=== PATIENT | male | born 1935 | race Caucasian/White ===

== ENCOUNTER → 2017-07-01 | Outpatient (CLI) | payer OTHER ==
[~2017-07-01] MED LIST: ACET500T13 PO; ASPI81CH6 CHEW; ASPI81TA23 PO; COMMODE 3-IN-11 MIS; CPMMACHINE; DOCU100C15 PO; HYDR-3288 PO; LISI-515 PO; METO25TA3 PO; SIMV40TA PO; VITA20003 PO; WALKER WHEELS/F1 MIS; traMADol-ACETAMIN 37.5-325 MG PO
== END ==
LOC: CPRE 08:44
PROVIDERS: ATTEND Orthopaedic Surgery Sports Medicine
DX: M17.12 Unilateral primary osteoarthritis, left knee (principal)

== ENCOUNTER 2017-07-15 05:26 | Inpatient (IN) | payer OTHER, MEDICARE ==
[~2017-07-15] VITALS: Ht 174 cm; Wt 88.0 kg
[~2017-07-15 05:26] MED LIST changes: -ACET500T13 PO; -ASPI81CH6 CHEW; -COMMODE 3-IN-11 MIS; -CPMMACHINE; -DOCU100C15 PO; -HYDR-3288 PO; -WALKER WHEELS/F1 MIS; -traMADol-ACETAMIN 37.5-325 MG PO
[2017-07-15] MEDS ORDERED: TRANEXAMIC ACID INJ 1,320 MG in SODIUM CHLORIDE 0.9% INJ 100 ML IV SCH (06:15)
[2017-07-15] MEDS ORDERED: POVIDONE IODINE 5% (ANTISEPSIS KIT) 4 APPLICATIONS EACH NARE PRN (06:15)
[2017-07-15] MEDS ORDERED: CHLORHEXIDINE GLUCONATE 4% SOLN 120 ML BTL TOPICAL SCH (06:15)
[2017-07-15] MEDS ORDERED: ROPIVACAINE PERI-ARTICULAR INJECTION. P-ARTICULR SCH ×5 (06:15)
[2017-07-15] MEDS ORDERED: LACTATED RINGER'S 1000 ML IV PRN (06:15)
[2017-07-15] MEDS ORDERED: SODIUM CHLORID 0.9% 500 ML IV PRN (06:15)
[2017-07-15] MEDS ORDERED: VANCOMYCIN 1000 MG/NS 250 ML (for <70 kg) IV SCH (06:15)
[2017-07-15] MEDS ORDERED: METOPROLOL TARTRATE 25 MG TAB PO PRN (06:15)
[2017-07-15] MEDS ORDERED: ceFAZolin 2 GM PREMIX 50 ML IV SCH (06:15)
[2017-07-15] MEDS ORDERED: POVIDONE IODINE 7.5% SCRUB 118 ML BOTTLE TOPICAL SCH (06:15)
[2017-07-15] MEDS ORDERED: CHLORHEXIDINE GLUCONATE 2 % 1 PACK (2 CLOTHS) TOPICAL PRN (06:15)
[2017-07-15] MEDS ORDERED: DEXAMETHASONE SOD PHOS 20 MG/5 ML VIAL IV PUSH PRN (06:15)
[2017-07-15] MEDS ORDERED: TRANEXAMIC PERI-ARTICULAR 3,000 MG/NS 100 ML P-ARTICULR SCH ×2 (06:15)
[2017-07-15 06:41] VITALS: PULSE 54
[2017-07-15] MEDS ORDERED: ASPI81CH6 CHEW (06:59)
[2017-07-15] MEDS ORDERED: HYDR-3288 PO (06:59)
[2017-07-15] MEDS ORDERED: diphenhydrAMINE HCL 50 MG/ML VIAL IV PUSH PRN (07:00)
[2017-07-15] MEDS ORDERED: MORPHINE SULFATE 4 MG/ML INJ IV PUSH PRN (07:00)
[2017-07-15] MEDS ORDERED: ACETAMINOPHEN/HYDROcodone 325 MG/7.5 MG TAB PO PRN ×2 (07:00)
[2017-07-15] MEDS ORDERED: ZOLPIDEM TARTRATE 5 MG TAB PO PRN (07:00)
[2017-07-15] MEDS ORDERED: ONDANSETRON HCL 4 MG/2 ML VIAL IVP PRN (07:00)
[2017-07-15] MEDS ORDERED: Post-op Orders (for Pharmacy) XX ONE (07:00)
[2017-07-15] MEDS ORDERED: MIDAZOLAM HCL 2 MG/2 ML VIAL ONE ×2 (07:14→10:38)
[2017-07-15] MEDS ORDERED: GENTAMICIN SULFATE 80 MG/2 ML VIAL ONE (07:24)
[2017-07-15] MEDS ORDERED: MIDAZOLAM HCL 2 MG/2 ML VIAL IV ONE (07:30)
[2017-07-15] MEDS ORDERED: PROPOFOL 500 MG/50 ML INJ 50 ML ONE (07:42)
[2017-07-15] MEDS ORDERED: ACETAMINOPHEN 1000 MG/100 ML 100 ML IV ONE (07:42)
[2017-07-15] MEDS ORDERED: BUPIVACAINE HCL PF 0.5% 30 ML VIAL ONE (07:45)
[2017-07-15] MEDS: PRAVASTATIN SOD 80 MG TAB PO SCH (09:00)
[2017-07-15] MEDS: LISINOPRIL 20 MG TAB PO SCH (09:00)
[2017-07-15] MEDS: METOPROLOL TARTRATE 25 MG TAB PO SCH (09:00)
[2017-07-15] MEDS ORDERED: DO NOT ADM ANY ANTICOAGULANT DRUGS PRN (10:27)
--- NOTE | 2017-07-15 10:41 | MP ---
cc: Manan Cruz MD DATE OF OPERATION: DATE OF PROCEDURE: 07/15/2017 PREOPERATIVE DIAGNOSIS: Left knee osteoarthritis. POSTOPERATIVE DIAGNOSIS: Left knee osteoarthritis. PROCEDURE PERFORMED: Left total knee arthroplasty. SURGEON: Manan Cruz MD GLASS DESIGNER: DANIEL Higuera ANESTHESIA: Spinal as well as 50 mL TOURNIQUET TIME: 30 minutes at 250 mmHg. COMPLICATIONS: None. IMPLANTS USED: DePuy Attune size 7 posterior stabilized femoral component, size 8 rotating platform tibial baseplate, size 10 mm polyethylene tibial insert, size 38 patella. INDICATIONS: This patient is an 82-year-old male with history of severe end-stage osteoarthritis involving the left knee. He has severe disabling pain with standing, walking, ambulation and weightbearing activities and severe pain with rest. It does interfere with activities of daily living. He has failed greater than 3 months of nonoperative conservative treatment to include medication therapy, injections, ambulatory assisted aids, home exercise program, activity modification. The patient is not overweight. X-rays of the left knee reveal severe osteoarthritis with [id number] joint space narrowing, subchondral sclerosis, subchondral cyst, osteophyte formation with varus deformity and subluxation. The patient was counseled as to the risks, benefits and alternatives to a total knee arthroplasty. The risks were discussed, which include, but are not limited to anesthesia, bleeding, infection, damage to nerves, blood vessels, pain, stiffness, failure of components, blood clots, pulmonary embolism and even . The patient's pain is severe. He favored the benefits over the risks and he did wish to proceed with surgery. PROCEDURE IN DETAIL: Written consent was obtained. The patient was identified by name, taken to the operating room and placed supine on the operating table. Spinal anesthesia was administered, as well as 2 grams of IV Ancef and 1 gram IV vancomycin. A well-padded tourniquet was placed on the left thigh. The left lower extremity was prepped and draped using isopropyl alcohol, Hibiclens solution and ChloraPrep solution. After a timeout was performed, an Esmarch bandage was used to exsanguinate the left lower extremity and tourniquet inflated to 250 mmHg. A longitudinal incision was made over the anterior aspect of the left knee. A medial parapatellar arthrotomy incision was performed. The patella was everted. The patellar resection guide was used to resect 9 mm of the patella. The size 38 mm guide was placed. Three drill holes were placed and a 30 mm trial fit well. Attention was turned to the femur. Intramedullary guide was placed and the distal femoral guide was set to remove 10 mm of distal femur 5 degrees off the anatomic valgus axis alignment. An oscillating saw was used to perform distal femoral cut. Attention was turned to the tibia where an extramedullary tibial guide was set to remove 6 mm of the lowest portion of the medial tibial plateau. The tibia guide was pinned in place and tibial cut was performed. A 5 mm spacer block showed full extension. Attention was turned back to the femur. AP sizing block measured a size 7. The anterior reference 3-degree external rotation guide was used to pin a size [address] The anterior, posterior and chamfer cuts were performed. A size 7 PCL box guide was pinned in place and the PCL was boxed out with an oscillating saw. The medial and lateral meniscus remnants were removed, as well as bone and soft tissue and debris from the posterior portion of the knee. A size 8 tibial baseplate was pinned in place and the tibia was drilled and punched. Trial components were evaluated and the final components cemented in place. With the current components the leg could achieve full extension 0 degrees, flexion to 140. No evidence of tibial liftoff. Varus valgus balance appeared appropriate and symmetric. The patella was noted to track centrally. With the tourniquet deflated, Bovie cautery was used for hemostasis. The surgical wound was thoroughly irrigated with sterile saline pulse lavage antibiotic impregnated solution. The arthrotomy incision was closed with #1 Vicryl suture, subcutaneous layer with 2-0 Vicryl suture, skin was closed with Dermabond. Sterile dressing applied. The patient tolerated the procedure well with no intraoperative complications noted. Ko Greene, physician ortho assistant certified was present for the entire procedure to include the patient positioning, the procedure itself. The medical necessity of physician ortho assistant was indicated in this case due to the complexity of the procedure. He assisted with appropriate manipulation of the leg and also retraction of muscle, tendon, bone, neurovascular structures. He assisted with preparation of bone and also implantation of the prosthetic replacement. MD JUNIE Guerin/TL , 10:12 AM , 10:40 AM
--- NOTE | 2017-07-15 11:18 | RADRPT ---
EXAM DATE/TIME: 07/15/2017 10:49 [facility] COMPARISON: No previous studies available for comparison. INDICATIONS : Post op left knee surgery MEDICAL HISTORY : None. SURGICAL HISTORY : None. ENCOUNTER: Initial ACUITY: 1 day PAIN SCORE: 0/10 LOCATION: Left knee FINDINGS: Postoperative total knee arthroplasty with intact hardware and normal alignment of the osseous struct ures. Superficial and deep soft tissue gas about the knee. No metallic radiopaque foreign bodies. CONCLUSION: Expected postsurgical changes status post total knee arthroplasty. Jalen Juan MD on July 15, 2017 at 11:16 Board Certified Radiologist. This report was verified electronically.
[2017-07-15] MEDS: SODIUM CHLOR 0.9% 1000 ML INJ 1,000 ML IV SCH ×2 (11:30→16:37)
[2017-07-15] MEDS ORDERED: ROCURONIUM INJ 50 MG/5 ML SYRINGE IV PUSH ONE (12:00)
[2017-07-15] MEDS ORDERED: LIDOCAINE HCL 1% PF 5 ML SYRINGE OTHER ONE (12:00)
[2017-07-15] MEDS ORDERED: PROPOFOL 200 MG/20 ML AMP IV ONE (12:00)
[2017-07-15] MEDS ORDERED: ePHEDrine/NS 25 MG/5 ML SYRINGE IV ONE (12:00)
[2017-07-15] MEDS ORDERED: ONDANSETRON HCL 4 MG/2 ML VIAL IV ONE (12:00)
--- NOTE | 2017-07-15 14:40 | PD.CONS ---
[facility] By [facility] Care Physician Josef Fischer M.D. Diagnoses: History of Present Illness Mr. Lopez is an 82-year-old male. He is admitted secondary to an elective left knee surgery related to osteoarthritis. Previous surgeries include skin cancer removal and a nephrectomy. No previous orthopedic surgeries, per patient. When seen his pain is controlled. He reports no nausea or vomiting. In addition to osteoarthritis, baseline medical conditions are hypertension, hyperlipidemia, and vitamin D deficiency. Review of Systems Constitutional: DENIES: Fatigue, Fever, Chills Eyes: DENIES: Diplopia, Eye inflammation, Eye pain Ears, nose, mouth, throat: DENIES: Hearing loss, Vertigo, Nasal discharge Respiratory: DENIES: Cough, Wheezing, Shortness of breath Cardiovascular: DENIES: Chest pain, Palpitations, Syncope Gastrointestinal: DENIES: Abdominal pain, Black stools, Bloody stools Musculoskeletal: COMPLAINS OF: Joint pain, Muscle aches, Stiffness, Joint Swelling Integumentary: DENIES: Abnormal pigmentation, Nail changes, Pruritus, Rash Hematologic/lymphatic: DENIES: Bruising, Lymphadenopathy Immunologic/allergic: DENIES: Eczema, Urticaria Neurologic: DENIES: Abnormal gait, Headache, Paresthesias Psychiatric: DENIES: Anxiety, Confusion, Hallucinations Past Family Social History Allergies: Coded Allergies: No Known Allergies (Unverified , 07/01/17) Past Medical History Hyperlipidemia Hypertension Vitamin D deficiency Osteoarthritis Past Surgical History Skin cancer removals Nephrectomy Reported Medications Reported Meds & Active Scripts Active Aspirin Low Dose (Aspirin) 81 Mg Chew 81 Mg CHEW BID 30 Days [place] (Hydrocodone-Acetaminophen) 7.5-325 mg Tab 1-2 Tab PO Q6H PRN Reported Lisinopril 20 Mg Tab 20 Mg PO DAILY Metoprolol Tartrate 25 Mg Tab 25 Mg PO DAILY Vitamin D (Cholecalciferol) 2,000 Unit Tab 1 Cap PO DAILY Aspirin EC (Aspirin) 81 Mg Tabdr 81 Mg PO DAILY Simvastatin 40 Mg Tab 40 Mg PO DAILY Active Ordered Medications Administered Medications Medications (Trade) Dose Ordered Sig/Bret Route PRN Reason Start Time Stop Time Status Last Admin Dose Admin Lactated Ringer's 1,000 ml @ 30 mls/hr Q24H PRN IV SEE LABEL COMMENTS 07/15/17 06:15 07/18/17 06:14 07/15/17 06:40 Povidone Iodine (Betadine 5% Antisepsis Kit) 1 applic WAGON PERSON PRN EACH NARE SEE LABEL COMMENTS 07/15/17 06:15 07/18/17 06:14 07/15/17 06:43 Chlorhexidine Gluconate (Chlorhexidine 2% Cloth) 3 pack WAGON PERSON PRN TOPICAL SEE LABEL COMMENTS 07/15/17 06:15 07/18/17 06:14 07/15/17 05:40 Chlorhexidine Gluconate (Hibiclens 4% Top Soln) 1 applic ONCE TOPICAL 07/15/17 06:15 07/18/17 06:14 07/15/17 06:43 Cefazolin Sodium/ Dextrose 50 ml @ 100 mls/hr WAGON PERSON IV 07/15/17 06:15 07/18/17 06:14 07/15/17 08:16 Vancomycin/Sodium Chloride 200 ml @ 200 mls/hr WAGON PERSON IV 07/15/17 06:15 07/18/17 06:14 07/15/17 07:31 Tranexamic Acid 1320 mg/Sodium Chloride 113.2 ml @ 200 mls/hr ONCE IV 07/15/17 06:15 07/15/17 15:00 07/15/17 08:43 Ropivacaine 24.63 ml/Ketorolac Tromethamine 30 mg/Epinephrine HCl 0.5 mg/ Clonidine 80 mcg/ Sodium Chloride 100 ml @ 200 mls/hr ONCE P-ARTICULR 07/15/17 06:15 07/15/17 16:00 07/15/17 09:30 Tranexamic Acid 3000 mg/Sodium Chloride 130 ml @ 260 mls/hr ONCE P-ARTICULR 07/15/17 06:15 07/15/17 16:00 07/15/17 09:30 Sodium Chloride 1,000 ml @ 100 mls/hr Q10H IV 07/15/17 06:56 07/15/17 11:30 Cefazolin Sodium 1000 mg/Sodium Chloride 100 ml @ 200 mls/hr Q6H IV 07/15/17 14:00 07/16/17 02:29 07/15/17 13:47 Acetaminophen/ Hydrocodone Bitart ([place] 7.5-325 Mg) 1 tab Q4H PRN PO PAIN LESS THAN 5 ON SCALE 07/15/17 07:00 07/15/17 14:12 Family History Father of cancer, not specified Mother of old age No known medical conditions other than as stated Social History No history of smoking No history of alcohol abuse No history of illicit drug abuse Physical Exam Vital Signs Vital Signs Date Time Temp Pulse Resp B/P (MAP) Pulse Ox O2 Delivery O2 Flow Rate FiO2 07/15/17 13:30 97.0 61 14 115/63 (80) 100 Nasal Cannula 2 07/15/17 12:30 55 14 118/56 (76) 100 Nasal Cannula 2 07/15/17 12:15 54 15 112/55 (74) 100 Nasal Cannula 2 07/15/17 12:00 55 16 107/55 (72) 100 Nasal Cannula 2 07/15/17 11:45 56 15 113/56 (75) 100 Nasal Cannula 2 07/15/17 11:30 55 16 110/54 (72) 99 Nasal Cannula 2 07/15/17 11:15 58 18 105/52 (69) 97 Nasal Cannula 2 07/15/17 11:00 74 16 102/54 (70) 96 Nasal Cannula 2 07/15/17 10:45 59 14 100/50 (67) 95 Nasal Cannula 2 07/15/17 10:30 96.0 72 16 92/55 (67) 100 Nasal Cannula 2 07/15/17 06:41 95 Nasal Cannula 2 07/15/17 06:41 54 07/15/17 06:33 97.8 55 20 140/67 (91) 98 Physical Exam GENERAL: NAD, A&Ox3 HEAD: Normocephalic. NECK: Supple, trachea midline. No lymphadenopathy. EYES: No scleral icterus. No injection or drainage. CARDIOVASCULAR: Regular rate and rhythm without murmurs, gallops, or rubs. RESPIRATORY: Breath sounds equal bilaterally. No accessory muscle use. GASTROINTESTINAL: Abdomen soft, non-tender, nondistended. MUSCULOSKELETAL: No cyanosis, or edema. Left knee is bandaged, left knee is in a mobilizer SKIN: Warm and dry. NEURO: No focal neurological deficitis. Imaging Last Impressions Knee X-Ray 07/15/17 0656 Signed Impressions: Service Date/Time: Saturday, July 15, 2017 10:49 - CONCLUSION: Expected postsurgical changes status post total knee arthroplasty. Jalen Juan MD Assessment and Plan Problem List: (1) Primary localized osteoarthrosis, lower leg ICD Code: M17.10 - Unilateral primary osteoarthritis, unspecified knee (2) Primary localized osteoarthrosis, pelvic region and thigh ICD Code: M16.10 - Unilateral primary osteoarthritis, unspecified hip Assessment and Plan 82-year-old male admitted secondary to elective left knee surgery secondary to osteoarthritis Status post left knee arthroplasty Osteoarthritis Monitor H&H Orthopedic surgeons following Bedrest for now Physical therapy plan Continue pain control as needed Hypertension Continue baseline treatment Follow blood pressures Adjust treatments as needed Hyperlipidemia Continue present treatment Follow as an outpatient Vitamin D deficiency Continue supplement DVT prophylaxis Per surgical recommendations Bc De La Rosa MD Jul 15, 2017 14:40
[2017-07-15 15:00] VITALS: BP 127/63; PULSE 73; RESP 17; TEMP 97.2; O2SAT 94
[2017-07-15 20:00] VITALS: BP 137/63; PULSE 90; RESP 18; TEMP 97.4; O2SAT 95
[2017-07-16 00:01] VITALS: BP 146/65; PULSE 82; RESP 18; TEMP 97.6; O2SAT 95
[2017-07-16] MEDS: SODIUM CHLOR 0.9% 1000 ML INJ 1,000 ML IV SCH ×3 (02:40→22:56)
[2017-07-16 04:00] VITALS: BP 118/60; PULSE 68; RESP 17; TEMP 97.7; O2SAT 96
[2017-07-16 06:22] LABS: HEMATOCRIT 35.5 % (39.0-51.0); HEMOGLOBIN 12.1 GM/DL (13.0-17.0); MEAN CORPUSCULAR HGB CONC 34.1 % (32.0-36.0); MEAN PLATELET VOLUME 9.9 FL (7.0-11.0); PLATELET COUNT 104 TH/MM3 (150-450); RED BLOOD COUNT 4.03 MIL/MM3 (4.50-5.90); RED CELL DISTRIBUTION WIDTH 14.1 % (11.6-17.2); WHITE BLOOD COUNT 14.9 TH/MM3 (4.0-11.0)
[2017-07-16 06:39] LABS: BICARBONATE 24.8 MEQ/L (21.0-32.0); CALCIUM 8.3 MG/DL (8.5-10.1); CREATININE 1.58 MG/DL (0.60-1.30)
[2017-07-16 07:59] VITALS: BP 168/83; PULSE 80; RESP 18; TEMP 97.1; O2SAT 97
--- NOTE | 2017-07-16 08:36 | PD.ORT.PN ---
Subjective Post Op Day #: 1 Subjective Remarks patient very confused. Objective Vitals Vital Signs Date Time Temp Pulse Resp B/P (MAP) Pulse Ox O2 Delivery O2 Flow Rate FiO2 07/16/17 07:59 97.1 80 18 168/83 (111) 97 07/16/17 04:00 97.7 68 17 118/60 (79) 96 07/16/17 00:01 97.6 82 18 146/65 (92) 95 07/15/17 20:00 97.4 90 18 137/63 (87) 95 07/15/17 15:12 18 07/15/17 15:00 97.2 73 17 127/63 (84) 94 07/15/17 13:30 97.0 61 14 115/63 (80) 100 Nasal Cannula 2 07/15/17 12:30 55 14 118/56 (76) 100 Nasal Cannula 2 07/15/17 12:15 54 15 112/55 (74) 100 Nasal Cannula 2 07/15/17 12:00 55 16 107/55 (72) 100 Nasal Cannula 2 07/15/17 11:45 56 15 113/56 (75) 100 Nasal Cannula 2 07/15/17 11:30 55 16 110/54 (72) 99 Nasal Cannula 2 07/15/17 11:15 58 18 105/52 (69) 97 Nasal Cannula 2 07/15/17 11:00 74 16 102/54 (70) 96 Nasal Cannula 2 07/15/17 10:45 59 14 100/50 (67) 95 Nasal Cannula 2 07/15/17 10:30 96.0 72 16 92/55 (67) 100 Nasal Cannula 2 I/O 07/15/17 07/15/17 07/15/17 07/16/17 07/16/17 07/16/17 07:00 15:00 23:00 07:00 15:00 23:00 Intake Total 1600 ml 360 ml Output Total 50 ml 150 ml 450 ml Balance 1550 ml -150 ml -90 ml Intake Oral 600 ml 360 ml IV Total 200 ml Other 800 ml Output Urine Total 150 ml 450 ml Estimated Blood Loss 50 ml # Voids 1 # Bowel Movements 0 Result Diagram: 07/16/17 0600 07/16/17 0600 Objective Remarks in chair, confused incision no erythema, no drainage neg homans nvi Assessment & Plan Ortho Post Op Day #: 1 Problem List: Assessment and Plan s/p L TKA wbat daily dressing changes becki, d/c on asa confused - daughter supposed to come visit today d/c planning home with [facility] and pt - cleared if does well in pt and confusion resolves f/up dr. peterson 2 weeks Manan Greene July 16, 2017 08:36
--- NOTE | 2017-07-16 08:37 | HHI.DCPOC ---
Discharge Care Plan Diagnosis: (1) Primary localized osteoarthrosis, lower leg Your Health Problems Are: Difficulty with ADL Goals to Promote Your Health * To prevent worsening of your condition and complications * To maintain your health at the optimal level Directions to Meet Your Goals Take your medications as prescribed Follow your dietary instruction Follow activity as directed Keep your appointments as scheduled Take your immunizations and boosters as scheduled If your symptoms worsen call your PCP, if no PCP go to Urgent Care Center or Emergency Room Smoking is Dangerous to Your Health. Avoid second hand smoke Call the 24-hour hour crisis hotline for domestic abuse at Manan Greene July 16, 2017 08:37
--- NOTE | 2017-07-16 08:38 | HHI.FF ---
Face to Face Verification Diagnosis: (1) Primary localized osteoarthrosis, lower leg Physical Therapy Gait training, Safety evaluation, Transfer training, bed to chair Knee: Total knee, Protocol: Left, Full weight bearing Left LE Weight Bearing: WB as tolerated Nursing RN: 3 days/week x 2 weeks Nursing: Dressing changes Dressing Changes: Daily dressing change I have seen patient Elia Ojeda Sr John on 07/16/17. My clinical findings support the need for the requested home health care services because: Limited ability to care for self High risk of falls I certify that my clinical findings support that this patient is homebound because: Post-op weakness Unsteady gait/balance Manan Greene July 16, 2017 08:38
[2017-07-16] MEDS ORDERED: CPMMACHINE (08:39)
[2017-07-16] MEDS ORDERED: COMMODE 3-IN-11 MIS (08:39)
[2017-07-16] MEDS ORDERED: WALKER WHEELS/F1 MIS (08:39)
[2017-07-16] MEDS: PRAVASTATIN SOD 80 MG TAB PO SCH (09:33)
[2017-07-16] MEDS: ENOXAPARIN SODIUM 40 MG/0.4 ML SYRINGE SQ SCH (09:33)
[2017-07-16] MEDS: LISINOPRIL 20 MG TAB PO SCH (09:33)
[2017-07-16] MEDS: METOPROLOL TARTRATE 25 MG TAB PO SCH (09:33)
[2017-07-16] MEDS ORDERED: PNEUMOCOCCAL POLYVALENT INJ 25 MCG/0.5 ML SYR IM ONE (10:00)
[2017-07-16] MEDS ORDERED: traMADol/ACETAMINOPHEN 37.5/325 1 TAB PO PRN (10:30)
--- NOTE | 2017-07-16 10:30 | HHI.PR ---
Subjective Remarks Confusion has onset overnight. Etiology is suspected to be related to narcotics. Patient has no complaints. He has been working well with PT. Objective Vital Signs Date Time Temp Pulse Resp B/P (MAP) Pulse Ox O2 Delivery O2 Flow Rate FiO2 07/16/17 07:59 97.1 80 18 168/83 (111) 97 07/16/17 04:00 97.7 68 17 118/60 (79) 96 07/16/17 00:01 97.6 82 18 146/65 (92) 95 07/15/17 20:00 97.4 90 18 137/63 (87) 95 07/15/17 15:12 18 07/15/17 15:00 97.2 73 17 127/63 (84) 94 07/15/17 13:30 97.0 61 14 115/63 (80) 100 Nasal Cannula 2 07/15/17 12:30 55 14 118/56 (76) 100 Nasal Cannula 2 07/15/17 12:15 54 15 112/55 (74) 100 Nasal Cannula 2 07/15/17 12:00 55 16 107/55 (72) 100 Nasal Cannula 2 07/15/17 11:45 56 15 113/56 (75) 100 Nasal Cannula 2 07/15/17 11:30 55 16 110/54 (72) 99 Nasal Cannula 2 07/15/17 11:15 58 18 105/52 (69) 97 Nasal Cannula 2 07/15/17 11:00 74 16 102/54 (70) 96 Nasal Cannula 2 07/15/17 10:45 59 14 100/50 (67) 95 Nasal Cannula 2 07/15/17 10:30 96.0 72 16 92/55 (67) 100 Nasal Cannula 2 I/O 07/15/17 07/15/17 07/15/17 07/16/17 07/16/17 07/16/17 07:00 15:00 23:00 07:00 15:00 23:00 Intake Total 1600 ml 360 ml Output Total 50 ml 150 ml 450 ml Balance 1550 ml -150 ml -90 ml Intake Oral 600 ml 360 ml IV Total 200 ml Other 800 ml Output Urine Total 150 ml 450 ml Estimated Blood Loss 50 ml # Voids 1 # Bowel Movements 0 Result Diagram: 07/16/17 0600 07/16/17 0600 Objective Remarks GENERAL: NAD, A&Ox3 HEAD: Normocephalic. NECK: Supple, trachea midline. No lymphadenopathy. EYES: No scleral icterus. No injection or drainage. CARDIOVASCULAR: Regular rate and rhythm without murmurs, gallops, or rubs. RESPIRATORY: Breath sounds equal bilaterally. No accessory muscle use. GASTROINTESTINAL: Abdomen soft, non-tender, nondistended. MUSCULOSKELETAL: No cyanosis, or edema. Dressing is at left knee. SKIN: Warm and dry. NEURO: No focal neurological deficitis. A/P Problem List: (1) Primary localized osteoarthrosis, lower leg ICD Code: M17.10 - Unilateral primary osteoarthritis, unspecified knee (2) Primary localized osteoarthrosis, pelvic region and thigh ICD Code: M16.10 - Unilateral primary osteoarthritis, unspecified hip Assessment and Plan 82-year-old male admitted secondary to elective left knee surgery secondary to osteoarthritis Onset of confusion overnight. Toxic encephalopathy related to narcotics Narcotics discontinued Monitor for improvement in cognitive status Status post left knee arthroplasty Osteoarthritis Hemoglobin has only a mild drop, no concerns, no need for further monitoring of hemoglobin. Orthopedic surgeons following Bedrest for now Physical therapy plan Continue pain control as needed Hypertension Continue baseline treatment Follow blood pressures Adjust treatments as needed Hyperlipidemia Continue present treatment Follow as an outpatient Vitamin D deficiency Continue supplement DVT prophylaxis Per surgical recommendations Bc De La Rosa MD July 16, 2017 10:30
[2017-07-16 11:33] VITALS: BP 130/66; PULSE 71; RESP 18; TEMP 98.1; O2SAT 97
[2017-07-16 15:58] VITALS: BP 143/63; PULSE 65; RESP 18; TEMP 98.5; O2SAT 97
[2017-07-16] MEDS: ACETAMINOPHEN 500 MG CPLT PO PRN ×2 (16:06→22:22)
[2017-07-16 20:00] VITALS: BP 115/56; PULSE 65; RESP 20; TEMP 98.5; O2SAT 96
[2017-07-16] MEDS: DOCUSATE SODIUM 100 MG CAP PO SCH (20:00)
[2017-07-16] MEDS: MULTIVITAMINS/MINERALS THERAPEUTIC TAB PO SCH (20:00)
[2017-07-17] VITALS: BP 112/55; PULSE 71; RESP 20; TEMP 98.6; O2SAT 94
[2017-07-17] MEDS: ACETAMINOPHEN 500 MG CPLT PO PRN (04:57)
[2017-07-17 07:04] LABS: HEMATOCRIT 35.6 % (39.0-51.0); HEMOGLOBIN 12.3 GM/DL (13.0-17.0); MEAN CELL VOLUME 88.3 FL (80.0-100.0); MEAN CORPUSCULAR HEMOGLOBIN 30.6 PG (27.0-34.0); MEAN CORPUSCULAR HGB CONC 34.7 % (32.0-36.0); PLATELET COUNT 104 TH/MM3 (150-450); RED BLOOD COUNT 4.03 MIL/MM3 (4.50-5.90); RED CELL DISTRIBUTION WIDTH 13.9 % (11.6-17.2); WHITE BLOOD COUNT 9.9 TH/MM3 (4.0-11.0)
[2017-07-17 07:25] LABS: BICARBONATE 28.2 MEQ/L (21.0-32.0); CALCIUM 8.3 MG/DL (8.5-10.1); CREATININE 1.35 MG/DL (0.60-1.30)
--- NOTE | 2017-07-17 08:07 | PD.ORT.PN ---
Subjective Post Op Day #: 2 Subjective Remarks patient's confusion has resolved. friend stayed with patient last night. Objective Vitals Vital Signs Date Time Temp Pulse Resp B/P (MAP) Pulse Ox O2 Delivery O2 Flow Rate FiO2 07/17/17 00:00 98.6 71 20 112/55 (74) 94 07/16/17 20:00 98.5 65 20 115/56 (75) 96 07/16/17 15:58 98.5 65 18 143/63 (89) 97 07/16/17 11:33 98.1 71 18 130/66 (87) 97 I/O 07/16/17 07/16/17 07/16/17 07/17/17 07/17/17 07/17/17 07:00 15:00 23:00 07:00 15:00 23:00 Intake Total 360 ml 1523 ml Output Total 450 ml Balance -90 ml 1523 ml Intake Oral 360 ml 800 ml IV Total 723 ml Output Urine Total 450 ml # Voids 1 3 # Bowel Movements 0 0 Result Diagram: 07/17/17 0622 07/17/17 0622 Objective Remarks in bed, nad, friend in room incision no erythema, no drainage neg homans nvi Assessment & Plan Ortho Post Op Day #: 2 Problem List: Assessment and Plan s/p L TKA wbat daily dressing changes lovenox, d/c on asa confusion post-op - resolved d/c planning home with [facility] and pt - cleared if does well in pt and confusion resolves f/up dr. peterson 2 weeks Manan Greene July 17, 2017 08:06
[2017-07-17] MEDS: MULTIVITAMINS/MINERALS THERAPEUTIC TAB PO SCH (08:09)
[2017-07-17] MEDS: METOPROLOL TARTRATE 25 MG TAB PO SCH (08:09)
[2017-07-17] MEDS: LISINOPRIL 20 MG TAB PO SCH (08:09)
[2017-07-17] MEDS: PRAVASTATIN SOD 80 MG TAB PO SCH (08:09)
[2017-07-17] MEDS: DOCUSATE SODIUM 100 MG CAP PO SCH (08:09)
[2017-07-17] MEDS: ENOXAPARIN SODIUM 40 MG/0.4 ML SYRINGE SQ SCH (08:10)
[2017-07-17] MEDS: SODIUM CHLOR 0.9% 1000 ML INJ 1,000 ML IV SCH (08:10)
[2017-07-17 08:22] VITALS: BP 110/57; PULSE 79; RESP 18; TEMP 98.2; O2SAT 95
[2017-07-17] MEDS ORDERED: DOCU100C15 PO (09:47)
[2017-07-17] MEDS ORDERED: traMADol-ACETAMIN 37.5-325 MG PO (09:51)
[2017-07-17] MEDS ORDERED: ACET500T13 PO (09:51)
--- NOTE | 2017-07-17 10:23 | HHI.PR ---
Subjective Remarks Resolution of confusion with cessation of narcotics. Patient is back to baseline today. Medically clear and stable for discharge home. Objective Vital Signs Date Time Temp Pulse Resp B/P (MAP) Pulse Ox O2 Delivery O2 Flow Rate FiO2 07/17/17 08:22 98.2 79 18 110/57 (74) 95 07/17/17 00:00 98.6 71 20 112/55 (74) 94 07/16/17 20:00 98.5 65 20 115/56 (75) 96 07/16/17 15:58 98.5 65 18 143/63 (89) 97 07/16/17 11:33 98.1 71 18 130/66 (87) 97 I/O 07/16/17 07/16/17 07/16/17 07/17/17 07/17/17 07/17/17 07:00 15:00 23:00 07:00 15:00 23:00 Intake Total 360 ml 1523 ml Output Total 450 ml Balance -90 ml 1523 ml Intake Oral 360 ml 800 ml IV Total 723 ml Output Urine Total 450 ml # Voids 1 3 # Bowel Movements 0 0 Result Diagram: 07/17/17 0622 07/17/17 06 Objective Remarks GENERAL: NAD, A&Ox3 HEAD: Normocephalic. NECK: Supple, trachea midline. No lymphadenopathy. EYES: No scleral icterus. No injection or drainage. CARDIOVASCULAR: Regular rate and rhythm without murmurs, gallops, or rubs. RESPIRATORY: Breath sounds equal bilaterally. No accessory muscle use. GASTROINTESTINAL: Abdomen soft, non-tender, nondistended. MUSCULOSKELETAL: No cyanosis, or edema. Dressing is at left knee. SKIN: Warm and dry. NEURO: No focal neurological deficitis. A/P Problem List: (1) Primary localized osteoarthrosis, lower leg ICD Code: M17.10 - Unilateral primary osteoarthritis, unspecified knee (2) Primary localized osteoarthrosis, pelvic region and thigh ICD Code: M16.10 - Unilateral primary osteoarthritis, unspecified hip Assessment and Plan 82-year-old male admitted secondary to elective left knee surgery secondary to osteoarthritis Medical clear for discharge home today. Toxic encephalopathy related to narcotics Narcotics discontinued Monitor for improvement in cognitive status Status post left knee arthroplasty Osteoarthritis Hemoglobin has only a mild drop, no concerns, no need for further monitoring of hemoglobin. Orthopedic surgeons following Bedrest for now Physical therapy plan Continue pain control as needed, narcotics avoided. Hypertension Continue baseline treatment Follow blood pressures Adjust treatments as needed Hyperlipidemia Continue present treatment Follow as an outpatient Vitamin D deficiency Continue supplement DVT prophylaxis Per surgical recommendations Discharge planning Medically clear for discharge home today. Bc De La Rosa MD July 17, 2017 10:23
[2017-07-17 12:27] VITALS: BP 112/56; PULSE 66; RESP 17; TEMP 98; O2SAT 95
== END 2017-07-17 14:08 | disposition home health service (06) | DRG 469 ==
LOC: HSDI 05:26 → N06B 13:59 → N06A 07-16 04:28 → N06B 07-17 12:55
PROVIDERS: ADMIT Orthopaedic Surgery Sports Medicine; ATTEND Orthopaedic Surgery Sports Medicine
PROC: 0SRD0J9 Replacement of Left Knee Joint with Synthetic Substitute, Cemented, Open Approach (ICD-10-PCS; principal; 2017-07-15 08:22)
DX: M17.12 Unilateral primary osteoarthritis, left knee (principal); G92 Toxic encephalopathy; M25.762 Osteophyte, left knee; M21.162 Varus deformity, not elsewhere classified, left knee; E78.5 Hyperlipidemia, unspecified; E55.9 Vitamin D deficiency, unspecified; T40.605A Adverse effect of unspecified narcotics, initial encounter; I12.9 Hypertensive chronic kidney disease with stage 1 through stage 4 chronic kidney disease, or unspecified chronic kidney disease; N18.3 Chronic kidney disease, stage 3 (moderate); Z85.828 Personal history of other malignant neoplasm of skin; Z90.5 Acquired absence of kidney
CPT/HCPCS: 73560; 80048; 85027; 86850; 86900; 86901; 94150; C1776; J0131; J0690; J0735; J1200; J1580; J1650; J1885; J2250; J2405; J2795; J3010; J3370; J7030; J7120; L1830